=== PATIENT | male | born 1935 | race Caucasian/White ===

== ENCOUNTER 2016-08-09 12:34 | Inpatient (IN) | payer OTHER ==
[~2016-08-09] VITALS: Ht 188 cm; Wt 108.2 kg
[~2016-08-09 12:34] MED LIST: ADVAIR 100/501 DISK IH; ADVAIR 250/501 DISK IH; BENADRYL50 MG PO; CATAPRES PO; CELECOXIB200 MG PO; Coumadin dosing per PO; Flomax PO; HYDROCODON-ACE1 EAC7 PO; HYDRODIURIL,O12.5 M2 PO; LOVENOX100 MG/1 M SC; PERCOCET 5/31 TABLET PO; PREDNISONE20 MG PO; PREDNISONE5 MG PO; PROAIR HFA8.5 GM IH; Proventil,Ventolin H IH; SEPTRA DS TABL1 EACH PO; STOOL SOFTENER100 MG PO; VALSARTAN-HCTZ1 EAC2 PO; WARFARIN SODIUM5 MG PO; ZANTAC300 MG PO; predniSONE PO
[2016-08-09 13:24] LABS: HEMATOCRIT 47.3 % (38.0-50.0); PLATELET COUNT 203 K/uL (156-360); RBC DIS.WIDTH-CV 14.7 % (11.8-14.6); RBC DIS.WIDTH-SD 49.6 % (39-53)
[2016-08-09 13:28] LABS: WHITE BLOOD COUNT 18.8 K/uL (4.1-10.2)
[2016-08-09 14:03] LABS: ANION GAP 10 MEQ/L (2-14); CHLORIDE 102 MEQ/L (99-109); POTASSIUM 3.6 MEQ/L (3.7-5.4); SAMPLE HEMOLYSIS CHECK 0; SAMPLE ICTERIC CHECK 0; SAMPLE LIPEMIA CHECK 0; SODIUM 139 MEQ/L (136-147)
[2016-08-09 14:08] LABS: GFR ESTIMATE (CALCULATED) > 59 mL/min/; GLUCOSE 122 mg/dL (70-99); UREA NITROGEN (BUN) 21 mg/dL (9-23)
[2016-08-09] MEDS ORDERED: WARFARIN SODIUM5 MG PO (14:09)
[2016-08-09] MEDS ORDERED: PROVENTIL,2.5 MG/3 M IH (14:10)
[2016-08-09] MEDS ORDERED: PRAVASTATIN SOD40 MG PO (14:10)
[2016-08-09 14:12] LABS: TROP-I INTERPRETATION NEGATIVE; TROPONIN-I 0.03 ng/mL (0.0-0.30)
[2016-08-09 15:19] LABS: INTER. NORMALIZED RATIO 1.6; PROTHROMBIN TIME 16.4 (9.2-11.2)
[2016-08-09 15:59] LABS: INFLUENZA A VIRAL ANTIGEN NEGATIVE; INFLUENZA B VIRAL ANTIGEN NEGATIVE
[2016-08-09 16:51] VITALS: BP 146/73
[2016-08-09 18:56] VITALS: BP 129/65
[2016-08-09 19:46] LABS: TROP-I INTERPRETATION NEGATIVE; TROPONIN-I 0.04 ng/mL (0.0-0.30)
[2016-08-09 23:16] VITALS: BP 111/71
[2016-08-10 01:29] LABS: TROP-I INTERPRETATION NEGATIVE; TROPONIN-I 0.02 ng/mL (0.0-0.30)
[2016-08-10 03:06] VITALS: BP 143/80
[2016-08-10 07:23] LABS: EOSINOPHIL (%) 0 % (0-5); HEMATOCRIT 45.8 % (38.0-50.0); IMMATURE GRANULOCYTE (%) 0.6 % (0.0-0.7); IMMATURE GRANULOCYTE COUNT 0.1 K/uL; INSTRUMENT ABS NEUTROPHIL CT 14.7 K/uL; LYMPHOCYTE COUNT 0.6 K/uL (1.0-2.8); MCH 30.1 PG (29.0-34.0); MCV 91.4 FL (86-99); MEAN PLAT.VOLUME 10.5 uM^3 (9.0-12.4); MONOCYTE COUNT 0.3 K/uL (0-0.8); NEUTROPHIL (%) 93.5 % (45-76); NEUTROPHIL COUNT 14.7 K/uL (1.8-6.4); PLATELET COUNT 198 K/uL (156-360); RBC DIS.WIDTH-CV 14.6 % (11.8-14.6); RBC DIS.WIDTH-SD 49.7 % (39-53); RED BLOOD COUNT 5.01 M/uL (4.00-5.50); WHITE BLOOD COUNT 15.7 K/uL (4.1-10.2)
[2016-08-10 07:42] LABS: ANION GAP 11 MEQ/L (2-14); CHLORIDE 103 MEQ/L (99-109); GFR ESTIMATE (CALCULATED) > 59 mL/min/; GLUCOSE 156 mg/dL (70-99); POTASSIUM 3.8 MEQ/L (3.7-5.4); SAMPLE HEMOLYSIS CHECK 0; SAMPLE ICTERIC CHECK 0; SAMPLE LIPEMIA CHECK 0; SODIUM 140 MEQ/L (136-147); UREA NITROGEN (BUN) 23 mg/dL (9-23)
[2016-08-10 07:55] VITALS: BP 132/68
[2016-08-10 10:11] LABS: INTER. NORMALIZED RATIO 1.4; PROTHROMBIN TIME 14.2 (9.2-11.2)
[2016-08-10 12:15] VITALS: BP 137/76
[2016-08-10 16:57] VITALS: BP 144/70
[2016-08-10 19:17] VITALS: BP 157/68
[2016-08-10 23:06] VITALS: BP 131/58
[2016-08-11 03:25] VITALS: BP 132/69
[2016-08-11 03:43] VITALS: BP 132/69
[2016-08-11 07:43] LABS: ALKALINE PHOSPHATASE 54 IU/L (3-129); ANION GAP 12 MEQ/L (2-14); CHLORIDE 102 MEQ/L (99-109); GFR ESTIMATE (CALCULATED) > 59 mL/min/; GLUCOSE 120 mg/dL (70-99); POTASSIUM 3.7 MEQ/L (3.7-5.4); SAMPLE HEMOLYSIS CHECK 0; SAMPLE ICTERIC CHECK 0; SAMPLE LIPEMIA CHECK 0; SODIUM 138 MEQ/L (136-147); TOTAL BILIRUBIN 0.6 MG/DL (0.0-1.0); UREA NITROGEN (BUN) 28 mg/dL (9-23)
[2016-08-11 07:50] LABS: INTER. NORMALIZED RATIO 1.4; PROTHROMBIN TIME 14.7 (9.2-11.2)
[2016-08-11 08:01] LABS: EOSINOPHIL (%) 0 % (0-5); HEMATOCRIT 42.6 % (38.0-50.0); IMMATURE GRANULOCYTE (%) 0.9 % (0.0-0.7); IMMATURE GRANULOCYTE COUNT 0.2 K/uL; INSTRUMENT ABS NEUTROPHIL CT 19.1 K/uL; LYMPHOCYTE COUNT 0.5 K/uL (1.0-2.8); MCH 31.1 PG (29.0-34.0); MCHC 34.5 G/DL (30.0-36.0); MCV 90.3 FL (86-99); MEAN PLAT.VOLUME 10.9 uM^3 (9.0-12.4); MONOCYTE COUNT 0.8 K/uL (0-0.8); NEUTROPHIL (%) 92.5 % (45-76); NEUTROPHIL COUNT 19.1 K/uL (1.8-6.4); PLATELET COUNT 238 K/uL (156-360); RBC DIS.WIDTH-CV 14.6 % (11.8-14.6); RBC DIS.WIDTH-SD 48.5 % (39-53); RED BLOOD COUNT 4.72 M/uL (4.00-5.50)
[2016-08-11 08:03] LABS: WHITE BLOOD COUNT 20.6 K/uL (4.1-10.2)
[2016-08-11] MEDS ORDERED: CALCIUM 500 MG1 EACH PO (11:50)
[2016-08-11] MEDS ORDERED: LEVAQUIN750 MG PO (11:50)
[2016-08-17 12:03] LABS: DRVVT Mixing Study Interp Not Indicated (()); Thrombosis Consult Level Limited (()); dRVVT Screen 38 sec (<=45)
[2016-08-23 13:32] LABS: ANTITHROMBIN III ACTIVITY+ 67 % activi (80-120)
== END 2016-08-11 15:40 | disposition home or self-care (01) | DRG 190 ==
LOC: EME 12:34 → 5EAST 14:33 → EDOF 14:33 → 5EAST 16:36
PROVIDERS: Emergency Medicine; Hospitalist; Internal Medicine Hematology & Oncology; Nurse Practitioner Family
DX: J44.0 Chronic obstructive pulmonary disease with (acute) lower respiratory infection (principal); J18.9 Pneumonia, unspecified organism; J96.01 Acute respiratory failure with hypoxia; J45.909 Unspecified asthma, uncomplicated; I10 Essential (primary) hypertension; Z86.718 Personal history of other venous thrombosis and embolism; Z86.711 Personal history of pulmonary embolism; Z79.01 Long term (current) use of anticoagulants; M17.11 Unilateral primary osteoarthritis, right knee; Z96.651 Presence of right artificial knee joint; Z95.1 Presence of aortocoronary bypass graft; Z87.891 Personal history of nicotine dependence; Z82.49 Family history of ischemic heart disease and other diseases of the circulatory system
CPT/HCPCS: 71020; 80048; 80053; 81240 90; 83090 90; 83605; 84484; 85025; 85027; 85240 90; 85300 90; 85307 90; 85610; 85613 90; 86146 90; 86147 90; 87040; 87502; 93005; 94640; 94640 76; 94760; 94799; 99202; 99281; 99285; J0456; J0696; J2920; J2930; J7030; J7050

== ENCOUNTER 2016-08-16 16:59 | Emergency (ER) | payer OTHER ==
[~2016-08-16] VITALS: Ht 188 cm; Wt 104.4 kg
[~2016-08-16 16:59] MED LIST changes: +CALCIUM 500 MG1 EACH PO; +LEVAQUIN750 MG PO; +PRAVASTATIN SOD40 MG PO; +PROVENTIL,2.5 MG/3 M IH
[2016-08-16 19:44] VITALS: BP 114/57
== END 2016-08-16 19:44 | disposition home or self-care (01) ==
LOC: EME 16:59
PROC: 0HQ1XZZ Repair Face Skin, External Approach (ICD-10-PCS; principal; 2016-08-16)
DX: S09.90XA Unspecified injury of head, initial encounter (principal); S01.81XA Laceration without foreign body of other part of head, initial encounter; W18.30XA Fall on same level, unspecified, initial encounter; Z79.01 Long term (current) use of anticoagulants; Z87.891 Personal history of nicotine dependence
CPT/HCPCS: 70450; 99281; 99284

== ENCOUNTER 2017-02-18 11:41 | Observation (INO) | payer OTHER ==
[~2017-02-18] VITALS: Ht 188 cm; Wt 106.1 kg
[2017-02-18 14:56] LABS: BASOPHIL COUNT 0.1 K/uL (0-0.1); EOSINOPHIL (%) 3.5 % (0-5); EOSINOPHIL COUNT 0.4 K/uL (0-0.3); IMMATURE GRANULOCYTE (%) 0.4 % (0.0-0.7); LYMPHOCYTE COUNT 1.6 K/uL (1.0-2.8); MCH 31.1 PG (29.0-34.0); MCV 91.6 FL (86-99); MEAN PLAT.VOLUME 10.1 uM^3 (9.0-12.4); MONOCYTE COUNT 0.8 K/uL (0-0.8); NEUTROPHIL (%) 73.7 % (45-76); PLATELET COUNT 222 K/uL (156-360); RBC DIS.WIDTH-CV 14.6 % (11.8-14.6); RED BLOOD COUNT 5.46 M/uL (4.00-5.50); WHITE BLOOD COUNT 10.8 K/uL (4.1-10.2)
[2017-02-18 15:07] LABS: CHLORIDE 102 mEq/L (99-109); POTASSIUM 4.1 mEq/L (3.7-5.4); SODIUM 143 mEq/L (136-147)
[2017-02-18 15:09] LABS: GLUCOSE 104 mg/dL (70-99)
[2017-02-18 15:10] LABS: ANION GAP 11 MEQ/L (2-14)
[2017-02-18 15:11] LABS: TOTAL BILIRUBIN 0.6 mg/dL (0.0-1.0)
[2017-02-18 15:12] LABS: ALKALINE PHOSPHATASE 61 IU/L (3-129)
[2017-02-18 15:13] LABS: GFR ESTIMATE (CALCULATED) > 59 mL/min/
[2017-02-18 15:14] LABS: UREA NITROGEN (BUN) 23 mg/dL (9-23)
[2017-02-18 15:22] LABS: TROP-I INTERPRETATION NEGATIVE; TROPONIN-I < 0.01 ng/mL (0.0-0.30)
[2017-02-18 19:32] VITALS: BP 159/82
[2017-02-18 20:42] LABS: INTER. NORMALIZED RATIO 2.7; PROTHROMBIN TIME 30.3 SEC (10.2-12.9)
[2017-02-18 23:26] VITALS: BP 131/73
[2017-02-19 04:07] VITALS: BP 145/69
[2017-02-19 05:24] LABS: INTER. NORMALIZED RATIO 2.8; PROTHROMBIN TIME 31.9 SEC (10.2-12.9)
[2017-02-19 05:29] LABS: HEMATOCRIT 44.5 % (38.0-50.0); MCH 30.5 PG (29.0-34.0); MCHC 33.9 G/DL (30.0-36.0); MCV 89.9 FL (86-99); MEAN PLAT.VOLUME 10.5 uM^3 (9.0-12.4); PLATELET COUNT 201 K/uL (156-360); RBC DIS.WIDTH-CV 14.3 % (11.8-14.6); RBC DIS.WIDTH-SD 47.1 % (39-53); RED BLOOD COUNT 4.95 M/uL (4.00-5.50); WHITE BLOOD COUNT 9.5 K/uL (4.1-10.2)
[2017-02-19 06:03] LABS: ANION GAP 10 MEQ/L (2-14); CHLORIDE 105 MEQ/L (99-109); GFR ESTIMATE (CALCULATED) > 59 mL/min/; POTASSIUM 3.7 MEQ/L (3.7-5.4); SAMPLE HEMOLYSIS CHECK 0; SAMPLE ICTERIC CHECK 0; SAMPLE LIPEMIA CHECK 0; SODIUM 141 MEQ/L (136-147); UREA NITROGEN (BUN) 27 mg/dL (9-23)
[2017-02-19 06:04] LABS: GLUCOSE 168 mg/dL (70-99)
[2017-02-19 08:45] VITALS: BP 140/70
[2017-02-19] MEDS ORDERED: MOTRIN600 MG PO (10:36)
[2017-02-19] MEDS ORDERED: SPIRIVA RESPIMAT4 GM IH (10:36)
[2017-02-19] MEDS ORDERED: AZITHROMYCIN500 M1 PO (10:36)
[2017-02-19] MEDS ORDERED: PREDNISONE5 MG PO (10:37)
[2017-02-19] MEDS ORDERED: MEDROL DOSEPAK4 MG PO (10:38)
[2017-02-19 11:17] VITALS: BP 137/73
== END 2017-02-19 13:20 | disposition home or self-care (01) ==
LOC: EME 11:41 → EDOF 18:19 → ENRESERV 18:21 → 5WEST 19:15
PROVIDERS: Hospitalist; Physician Assistant
DX: J44.1 Chronic obstructive pulmonary disease with (acute) exacerbation (principal); M54.6 Pain in thoracic spine; I10 Essential (primary) hypertension; E78.5 Hyperlipidemia, unspecified; M19.90 Unspecified osteoarthritis, unspecified site; Z87.891 Personal history of nicotine dependence; Z86.711 Personal history of pulmonary embolism; Z86.718 Personal history of other venous thrombosis and embolism; Z79.01 Long term (current) use of anticoagulants; Z96.653 Presence of artificial knee joint, bilateral; Z95.828 Presence of other vascular implants and grafts
CPT/HCPCS: 71020; 71275; 80048; 80053; 83880; 84484; 85025; 85027; 85379; 85610; 93005; 94640; 94640 76; 94644; 99202; 99281; 99285; G0378; J1885; J2930; J7120; J7509

== ENCOUNTER 2017-09-09 19:44 | Emergency (ER) | payer OTHER ==
[~2017-09-09] VITALS: Ht 188 cm; Wt 114.2 kg
[~2017-09-09 19:44] MED LIST changes: +AZITHROMYCIN500 M1 PO; +MEDROL DOSEPAK4 MG PO; +MOTRIN600 MG PO; +SPIRIVA RESPIMAT4 GM IH
[2017-09-09] MEDS ORDERED: FUTURO RESTORI1 EACH MC (21:23)
[2017-09-09 21:42] VITALS: BP 136/74
== END 2017-09-09 21:42 | disposition home or self-care (01) ==
LOC: EME 19:44
DX: R60.0 Localized edema (principal); I82.512 Chronic embolism and thrombosis of left femoral vein; I82.532 Chronic embolism and thrombosis of left popliteal vein; Z79.01 Long term (current) use of anticoagulants; I10 Essential (primary) hypertension; J44.9 Chronic obstructive pulmonary disease, unspecified; Z86.711 Personal history of pulmonary embolism; Z87.891 Personal history of nicotine dependence
CPT/HCPCS: 93971; 99281; 99282